=== PATIENT | female | born 1965 | race Caucasian/White ===

== ENCOUNTER 2019-08-19 13:23 | Observation (INO) ==
[2019-08-19] MEDS ORDERED: Ondansetron 4 MG/2 ML VIAL IVP ONE (13:32)
[2019-08-19] MEDS ORDERED: 0.9 % Sodium Chloride 1,000 ML IVC ONE (13:32)
[2019-08-19 13:49] LABS: Basophils % 0.6 %; Eosinophils # 0.1 K/mcL (0.0-0.6); Eosinophils % 1.6 %; Hematocrit 43.3 % (35.3-44.9); Hemoglobin 14.6 g/dL (11.5-15.4); Immature Granulocytes % 0.3 % (0-4); Lymphocytes # 1.9 K/mcL (0.6-4.6); Lymphocytes % 30.3 %; Mean Corpuscular HGB Conc 33.7 g/dL (31.6-35.5); Mean Corpuscular Hemoglobin 31.4 pg (28.0-33.3); Mean Corpuscular Volume 93.1 fL (83.0-100.0); Mean Platelet Volume 10.3 fL (9.4-12.4); Monocytes # 0.7 K/mcL (0.0-1.3); Monocytes % 10.8 %; Neutrophils # 3.5 K/mcL (1.6-8.9); Platelet Count 237 K/mcL (140-400); Red Blood Count 4.65 M/mcL (3.82-4.97); Red Cell Distribution Width 11.9 % (11.5-14.5); Segmented Neutrophils % 56.4 %; White Blood Count 6.2 K/mcL (4.3-11.1)
[2019-08-19 13:58] LABS: Bilirubin,Urine Negative (Negative); Blood,Urine Negative (Negative); Clarity,Urine Clear (Clear); Color,Urine Yellow (Yellow); Glucose,Urine (UA) Normal (Normal); Ketones,Urine Negative (Negative); Leukocyte Esterase,Urine Negative (Negative); Nitrite,Urine Negative (Negative); Protein,Urine Negative (Neg-Trace); Specific Gravity,Urine 1.023 (1.010-1.025); Urobilinogen,Urine Normal (Normal)
[2019-08-19] MEDS ORDERED: Dicyclomine 20 MG/2 ML AMPUL IM ONE (14:01)
[2019-08-19 14:08] LABS: Alanine Aminotransferase 48 Units/L (7-52); Albumin 4.7 g/dL (3.5-5.7); Albumin/Globulin Ratio 1.7 (1.1-2.2); Alkaline Phosphatase 69 Units/L (34-104); Aspartate Amino Transferase 25 Units/L (13-39); BUN/Creatinine Ratio 14 (6-26); Bilirubin,Total 0.9 mg/dL (0.3-1.0); Blood Urea Nitrogen 10 mg/dL (6-20); Calcium 9.6 mg/dL (8.6-10.3); Carbon Dioxide 26 mEq/L (23-29); Chloride 106 mEq/L (98-107); Globulin 2.8 g/dL (2.4-3.5); Glucose 98 mg/dL (70-105); Osmolality,Calculated 285 (280-300); Potassium 4.1 mEq/L (3.5-5.1); Sodium 138 mEq/L (136-145); Total Protein 7.5 g/dL (6.4-8.9); eGFR For African Americans > 60 (> 60); eGFR For Non-African Americans > 60 (> 60)
[2019-08-19] MEDS ORDERED: Piperacillin/Tazobactam 3.375 GM in Water for inj. (sterile) 20 ML IVP ONE (17:14)
[2019-08-19] MEDS ORDERED: 0.9 % Sodium Chloride 1,000 ML IVC SCH (18:30)
[2019-08-19] MEDS ORDERED: *HR* Rocuronium Bromide 50 MG/5 ML VIAL ONE (21:58)
[2019-08-19] MEDS ORDERED: *HR* Succinylcholine 200 MG/10 ML VIAL IVP ONE (21:58)
[2019-08-19] MEDS ORDERED: Lidocaine -MPF 4% 5 ML AMPUL ONE (21:58)
[2019-08-19] MEDS ORDERED: Lidocaine -MPF 2% 2 ML VIAL ONE (21:58)
[2019-08-19] MEDS ORDERED: *HR* Propofol 200 MG/20 ML VIAL IVP ONE (21:59)
[2019-08-19] MEDS ORDERED: *HR* Midazolam HCl 2 MG/2 ML VIAL ONE (21:59)
[2019-08-19] MEDS ORDERED: *HR* FentaNYL (PF) 100 MCG/2 ML VIAL ONE (21:59)
[2019-08-19] MEDS ORDERED: Bupivacaine/EPI 1:200k 0.5%PF 30 ML VIAL ONE (22:43)
[2019-08-19] MEDS ORDERED: Acetaminophen IV 1,000 MG/100 ML INFUS..BTL ONE (23:02)
[2019-08-19] MEDS ORDERED: Famotidine 20 MG/2 ML VIAL ONE (23:02)
[2019-08-19] MEDS ORDERED: Ketorolac 30 MG/ML VIAL ONE (23:56)
[2019-08-19] MEDS ORDERED: *HR* Magnesium Sulfate 1 GM/2 ML VIAL ONE (23:56)
[2019-08-20] MEDS ORDERED: Ampicillin/Sulbactam 3,000 MG in 0.9 % Sodium Chloride Mini Bag 100 ML IVPB SCH
[2019-08-20] MEDS ORDERED: *HR* HYDROMORPHONE 2 MG/ML VIAL ONE (00:01)
[2019-08-20] MEDS ORDERED: Ondansetron 4 MG/2 ML VIAL ONE (00:10)
[2019-08-20] MEDS ORDERED: Dexamethasone 4 MG/ML VIAL ONE (00:10)
[2019-08-20] MEDS ORDERED: Neostigmine Methylsulfate 3 MG/3 ML SYRINGE ONE (00:24)
[2019-08-20] MEDS ORDERED: *HR* OxyCODONE/APAP 5/325 TABLET PO PRN (01:32)
[2019-08-20] MEDS: Ampicillin/Sulbactam 3,000 MG in 0.9 % Sodium Chloride Mini Bag 100 ML IVPB SCH ×2 (05:08→11:29)
[2019-08-20] MEDS ORDERED: Ketorolac 15 MG/ML VIAL IVP SCH (06:00)
[2019-08-20] MEDS ORDERED: Acetaminophen IV 1,000 MG/100 ML INFUS..BTL IVPB SCH ×2 (06:00)
[2019-08-20 07:28] VITALS: BP 105/68
[2019-08-20] MEDS ORDERED: Ibuprofen 800 MG TABLET PO ONE (08:00)
== END 2019-08-20 11:29 | disposition home or self-care (01) ==
LOC: 3ANU 13:23 → EMEROOARM 13:23 → 3ANU 18:58
PROVIDERS: ADMIT Surgery; ATTEND Surgery